=== PATIENT | male | born 1955 | race Caucasian/White ===

== ENCOUNTER 2017-08-07 23:32 | Emergency (ER) | payer BC, OTHER ==
[~2017-08-07] VITALS: Ht 182.9 cm; Wt 81.7 kg
--- NOTE | ~2017-08-07 | EKG ---
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
[~2017-08-07 23:32] MED LIST: AMOXICILLIN 50500 MG PO; ASA5UEC PO; SAW PALMETTO160 MG PO; VITAMIN D2000 UNIT PO
== END 2017-08-08 01:09 | disposition left against medical advice (07) ==
LOC: ER 23:32
DX: R07.9 Chest pain, unspecified (principal)

== ENCOUNTER → 2018-07-31 | Outpatient (CLI) | payer BC, OTHER ==
[2018-07-31 07:37] LABS: CREATININE 1.2 mg/dL (0.7-1.3)
== END ==
LOC: MRI 06:32
PROVIDERS: Family Medicine
DX: K76.89 Other specified diseases of liver (principal); N28.1 Cyst of kidney, acquired

== ENCOUNTER 2019-02-07 11:20 | Emergency (ER) | payer BC, OTHER ==
[2019-02-07 11:46] LABS: ABSOLUTE NEUTROPHILS 4.5 thou/uL (1.4-8.2); BASOPHILS 0.6 % (0.0-2.0); EOSINOPHILS 3.8 % (0.0-3.0); HEMATOCRIT 44.1 % (42.0-52.0); HEMOGLOBIN 14.8 gm/dL (14.0-18.0); LYMPHOCYTES 29.5 % (24.0-44.0); MCH 32.3 pg (26.0-34.0); MCHC 33.6 g/dL (28.0-37.0); MCV 96.3 fL (80.0-100.0); PLATELET COUNT 225 thou/uL (150-400); POLYS 59.1 % (36.0-66.0); RBC 4.58 mil/uL (4.50-6.00); RDW 12.9 % (10.5-14.5); WBC 7.5 thou/uL (4.0-11.0)
[2019-02-07 11:56] LABS: ANION GAP 6 mmol/L (7-16); BUN 15 mg/dL (7-18); CALCIUM 9.2 mg/dL (8.5-10.1); CHLORIDE 97 mmol/L (98-107); CO2 29 mmol/L (21-32); GLUCOSE 92 mg/dL (74-106); POTASSIUM 3.9 mmol/L (3.5-5.1); SODIUM 132 mmol/L (136-145)
[2019-02-07 12:05] LABS: URINE BILIRUBIN NEGATIVE (Negative); URINE BLOOD NEGATIVE (Negative); URINE CLARITY CLEAR; URINE COLOR YELLOW; URINE GLUCOSE-RANDOM* NEGATIVE (Negative); URINE KETONES NEGATIVE (Negative); URINE LEUKOCYTES-REFLEX NEGATIVE (Negative); URINE NITRITE-REFLEX NEGATIVE (Negative); URINE PROTEIN (DIPSTICK) NEGATIVE (Negative); URINE UROBILINOGEN 0.2 E.U./dl (0.2-1.0)
[2019-02-07 12:05] LABS: SGOT 20 U/L (15-37); SGPT 24 U/L (30-65); TOTAL BILIRUBIN 0.6 mg/dL (<0.1-1.0); TOTAL PROTEIN 7.1 g/dL (6.4-8.2); TROPONIN-I <0.06 ng/mL (<0.06)
[2019-02-07 13:10] VITALS: BP 129/74
--- NOTE | 2019-02-08 10:18 | EKG ---
[address] [address] ELECTROCARDIOGRAM REPORT Name: JERARDO MCGEE Room #: DEP Antolin#: [id number] Admission: 02/07/19 Attend Phys: Discharge: 02/07/19 Date of : 51 Report #: [id number] THIS REPORT FOR: //name// [facility] ED Test Date: 2019-02-07 Test Time: 11:41:29 Pat Name: JERARDO MCGEE Department: Room: Gender: Demand Manager: : 1955 Requested By: Zana Nichole Order Number: [id number] MD: Iker Arreola Measurements Intervals [place] Rate: 71 P: 81 MI: 142 QRS: 76 QRSD: 98 T: 47 QT: 385 QTc: 419 Interpretive Statements Sinus rhythm Compared to ECG 08/07/2017 23:36:30 No change Electronically Signed On 02-08-2019 10:18:42 SCALE RECLAMATION TENDER by Iker Arreola [email or web address] <ELECTRONICALLY SIGNED> By: Iker Arreola MD 02/08/19 1018 1141 1141 Iker Arreola MD /EPI
== END 2019-02-07 13:11 | disposition home or self-care (01) ==
LOC: ER 11:20
PROVIDERS: Emergency Medicine
DX: R55 Syncope and collapse (principal)

== ENCOUNTER 2019-03-25 16:27 | Inpatient (IN) | payer BC, OTHER ==
[~2019-03-25] VITALS: Ht 182.9 cm; Wt 76.7 kg
[2019-03-25 16:32] VITALS: BP 123/61
[2019-03-25 17:11] LABS: ABSOLUTE NEUTROPHILS 7.7 thou/uL (1.4-8.2); BASOPHILS 0.2 % (0.0-2.0); EOSINOPHILS 0.6 % (0.0-3.0); HEMATOCRIT 44.1 % (42.0-52.0); HEMOGLOBIN 14.8 gm/dL (14.0-18.0); LYMPHOCYTES 8.4 % (24.0-44.0); MCH 32.3 pg (26.0-34.0); MCHC 33.6 g/dL (28.0-37.0); MCV 95.9 fL (80.0-100.0); MONOCYTES 2.2 % (1.0-8.0); PLATELET COUNT 213 thou/uL (150-400); POLYS 88.6 % (36.0-66.0); RDW 13.2 % (10.5-14.5); WBC 8.7 thou/uL (4.0-11.0)
[2019-03-25 17:21] LABS: CALCIUM 9.7 mg/dL (8.5-10.1); CREATININE 1.1 mg/dL (0.7-1.3); POTASSIUM 3.5 mmol/L (3.5-5.1)
[2019-03-25 17:27] LABS: ALBUMIN 4.3 g/dL (3.4-5.0); TOTAL BILIRUBIN 1.2 mg/dL (<0.1-1.0); TOTAL PROTEIN 7.1 g/dL (6.4-8.2)
[2019-03-25 18:32] LABS: URINE BILIRUBIN NEGATIVE (Negative); URINE BLOOD NEGATIVE (Negative); URINE CLARITY CLEAR; URINE COLOR YELLOW; URINE GLUCOSE-RANDOM* NEGATIVE (Negative); URINE KETONES TRACE (Negative); URINE LEUKOCYTES-REFLEX NEGATIVE (Negative); URINE NITRITE-REFLEX NEGATIVE (Negative); URINE PROTEIN (DIPSTICK) TRACE (Negative); URINE UROBILINOGEN 0.2 E.U./dl (0.2-1.0)
[2019-03-25] MEDS ORDERED: OMEPRAZOLE 20 M20 M1 PO (20:38)
[2019-03-25] MEDS ORDERED: POTASSIUM GLUCO99 M2 PO (20:39)
[2019-03-25 20:42] VITALS: BP 112/64; BP 123/64
[2019-03-25 20:45] VITALS: BP 115/64
--- NOTE | 2019-03-25 22:34 | NUR ---
PT ADMITTED INTO ROOM 433 AT AROUND 2130 HRS. PT IS ALERT AND ORIENTED. HE IS UP AD MAG-OBSERVED TO BE STEADY . PT HAS FLUIDS RUNNING. HE HAS A TEMP OF 100.0. DENIES ANY DISCOMFORT AT REST. HE HAS A PAIN OF 4/10 WITH ACTIVITY AND THATS MAINLY ABOMINAL GENERALISED.NPO EXCEPT MEDS WITH SMALL SIPS OF WATER.WILL CONTINUE WITH POC TILL EOS.
[2019-03-26 03:04] VITALS: BP 101/67
[2019-03-26 06:31] LABS: HEMATOCRIT 37.4 % (42.0-52.0); MCH 31.8 pg (26.0-34.0); MCHC 33.5 g/dL (28.0-37.0); MCV 95.1 fL (80.0-100.0); RBC 3.94 mil/uL (4.50-6.00); RDW 13.2 % (10.5-14.5); WBC 16.2 thou/uL (4.0-11.0)
[2019-03-26 06:35] LABS: HEMOGLOBIN 12.5 gm/dL (14.0-18.0)
[2019-03-26 06:41] LABS: CALCIUM 8.4 mg/dL (8.5-10.1); CREATININE 1.2 mg/dL (0.7-1.3)
[2019-03-26 06:45] LABS: ALBUMIN 3.1 g/dL (3.4-5.0); MAGNESIUM 1.7 mg/dL (1.8-2.4); PHOSPHORUS 3.4 mg/dL (2.5-4.9)
[2019-03-26 07:46] VITALS: BP 137/68
--- NOTE | 2019-03-26 11:50 | NUR ---
PT CARE ASSUMED AT 0700. A&Ox4. PT IS VERY PLEASANT AND RESTING IN HIS ROOM WITH PRESENT. PT IS ON BOWEL REST. NPO. CAN TAKE MEDS WITH SMALL SIPS OF WATER. LUIDS INFUSING AT 125ML/ HER. PT HAD A FEVER OVER THE PRIOR RISK CONSULTING TREASURY DIRECTOR WITH NO TEMPS OVER 38.6 DURING THIS SHIFT. Q2 TEMPS COMPLEETED. MD LARSON HAS BEEN CONSULTED AND HAS SEEN PT. ANTIBIOTICS INFUSING. IV IS PATENT WITH NO REDNESS OR EDEMA PRESENT. CHAPTSTICK PROVIDED AND PT DECLINED MOUTHSWABS. PT IS CONCERNED ABOUT THIS HOSPITAL STAY NOT BEING COVERED UNDER HIS INSURANCE. HI LO DRIVER NOTIFIED AND WILL TALK WITH PT AND . BED IS IN LOW POSITION, LOCKED WITH CALL LIGHT IN REACH.
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
[2019-03-26 15:44] VITALS: BP 110/67
[2019-03-26 20:45] VITALS: BP 119/75
--- NOTE | 2019-03-27 02:26 | NUR ---
ASSUMED CARE OF PT AT 1900HRS. PT IS AOX4 AND LTS NEEDS BE KNOWN. PT IS UP AD MAG. PT DENIED NAUSEA OR PAIN THIS SHIFT. PT TOLERATED PO MEDS WITH SIPS OF WATER. PT WAS AFIBRILE THIS SHIFT. ABX TREATMENT CONTINUED. PT WAS ABLE TO GET COMFORTABLE AND SLEEP PART OF THE SHIFT. VSS AND NO S/S OF ACUTE DISTRESS. WILL CONTINUE TO MONITOR.
[2019-03-27 03:30] VITALS: BP 119/76
[2019-03-27 06:26] LABS: HEMATOCRIT 38.7 % (42.0-52.0); HEMOGLOBIN 12.6 gm/dL (14.0-18.0); MCH 31.8 pg (26.0-34.0); MCHC 32.7 g/dL (28.0-37.0); MCV 97.4 fL (80.0-100.0); RBC 3.97 mil/uL (4.50-6.00); RDW 13.7 % (10.5-14.5); WBC 11.2 thou/uL (4.0-11.0)
[2019-03-27 06:52] LABS: ALBUMIN 3.1 g/dL (3.4-5.0); CALCIUM 8.2 mg/dL (8.5-10.1); CREATININE 1.1 mg/dL (0.7-1.3); PHOSPHORUS 2.7 mg/dL (2.5-4.9); POTASSIUM 3.8 mmol/L (3.5-5.1)
[2019-03-27 07:46] VITALS: BP 128/65
--- NOTE | 2019-03-27 10:42 | NUR ---
DR ALFONSO HERE TO SEE PATIENT WANTS PATIENT TO CONTINUE IV FLUIDS AND IV ABT TO CONTINUE NPO AND GIVE BOWEL REST TIME AND THEN PATIENT CAN DO SURGERY AT LATER TIME OUTPT. PT IS PLEASANT AND COOPERATIVE WITH CARE.
--- NOTE | 2019-03-27 16:46 | NUR ---
PT TRANSFERRRED TO SENIOR SUITES ROOM 405. PT AMBULATED TO ROOM ALL BELONGINGS AND IV FLUIDS SENT WITH PATIENT. PT REMAINS NPO.NO PAIN OR RESP DISTRESS AT TRANSFER.
[2019-03-27 16:54] VITALS: BP 127/73
--- NOTE | 2019-03-27 18:56 | NUR ---
PT TRANSFERED TO AT 1700 IN STABLE CONDITION.PIV CONTINUE ORDERED.NO VERBAL C/O.FAMILY HERE TO VISIT,UPDATES GIVEN.WILL CONTINUE TO MONITOR.
[2019-03-27 19:04] VITALS: BP 125/79
--- NOTE | 2019-03-28 03:47 | NUR ---
PATIENT ALERT AND ORIENTED X4. UP ADLIB IN ROOM AND HALLWAY. IVF INFUSING W/O COMPLICATION. DENIES PAIN. PATIENT ADVANCED TO CLEAR LIQUID DIET BY SURGEON, HOWEVER, HE PREFERS TO SPEAK WITH DR. ALFONSO BEFORE BEING TAKEN OFF OF NPO STATUS. ALSO REFUSED LOVENOX BECAUSE HE FEELS THAT HE WALKS ENOUGH AROUND THE UNIT. DENIES N/V. RESTING QUIETLY. WILL MONITOR.
[2019-03-28 07:32] VITALS: BP 98/52
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
[2019-03-28 09:05] LABS: HEMATOCRIT 39.7 % (42.0-52.0); HEMOGLOBIN 13.1 gm/dL (14.0-18.0); MCHC 32.9 g/dL (28.0-37.0); MCV 97.2 fL (80.0-100.0); RBC 4.08 mil/uL (4.50-6.00); RDW 13.6 % (10.5-14.5); WBC 8.7 thou/uL (4.0-11.0)
[2019-03-28 09:14] LABS: CALCIUM 8.6 mg/dL (8.5-10.1); POTASSIUM 4.4 mmol/L (3.5-5.1)
--- NOTE | 2019-03-28 18:25 | NUR ---
ASSUMED CARE OF PATIENT AT 0715, PATIENT ALERT AND ORIENTED X 4. PATIENT UP AD MAG, WALKING IN HALLWAYS MOST OF THE DAY. DR ALFONSO HERE THIS AM, ORDER TO D/C IV FLUIDS, PATIENT WILL TRY CELAR LIQUID DIET, HE WANTED TO WAIT AND TALK TO DR ALFONSO IN REGARD TO HIM RESUMING HIS DIET. DR ALFONSO STATES IF UNABLE TO TOLERATE DIET NOTIFY HIM AND HE WILL RESTARD IV FLUIDS. PATIENT HAS TOLERATED CLEAR LIQUIDS, AND FULL LIQUIDS FOR LUNCH AND DINNER, NO C/O NAUSEA OR PAIN THIS SHIFT. PATIENT HAS RIGHT FOREARM IV IN PLACE, RECEIVED 2 IV ANTIBIOTICS THIS SHIFT. PATIENT IS VERY PLEASANT AND COOPERATIVE. PATIENT HAS HAD MANY VISITORS TODAY. WILL CONTINUE TO MONITOR.
[2019-03-28 20:35] VITALS: BP 119/80
--- NOTE | 2019-03-29 02:18 | NUR ---
ASSUMED CARE OF PATIENT AT APPROX. 1999. ASSESSMENT CHARTED. MEDICATIONS GIVEN PER EMAR. PATIENT IS A&OX4 AND PLEASANT, COOPERATIVE. VSS, DENIES PAIN. TEMPERATURE IS 99.0, PATIENT IS CONCERNED ABOUT HIGH TEMP. AT 2300 ORAL TEMP RECHECKED AND AT 98.5. ZOSYN FINISHED INFUSING. NEXT DOSE TO BE ADMINISTERED AT 0300. PATIENT GETS UP INDEPENDENTLY W NO ISSUES W GAIT. PATIENT IS ON FULL LIQUIDS AND ADVANCING W NO C/O GI UPSET. URINE OUTPUT ADEQUATE; PATIENT STATES HE HAS SMALL BM'S WHEN HE VOIDS. FAMILY VISITED W PATIENT FOR MOST OF THE DAY. PATIENT DENIES NO OTHER NEEDS. IV INFUSING NS FLUSH AND PATENT. PATIENT WILL CALL OUT APPROPRIATELY. WILL CONTINUE TO MONITOR AND FOLLOW PLAN OF CARE.
--- NOTE | 2019-03-29 05:40 | NUR ---
THIS NURSE AGREES WITH ASSESSMENT AND NOTES BY GROOVER AND STRIPER OPERATOR FOR THIS PATIENT.
[2019-03-29 07:36] VITALS: BP 129/75
[2019-03-29] MEDS ORDERED: AUGMENTIN 875-1 EACH PO (09:29)
[2019-03-29] MEDS ORDERED: MIRALAX119 GM PO (10:53)
[2019-03-29 15:32] VITALS: BP 129/75
--- NOTE | 2019-03-29 19:55 | NUR ---
ASSUMED CARE OF PT AT 0715. PT IS A&OX4. IS ON ROOM AIR. IS UP ADLIB. DENIES PAIN & N/V. IS STABLE. HOURLY ROUNDING MAINTAINED. LABS REVIEWED.
== END 2019-03-29 16:00 | disposition home or self-care (01) | DRG 392 ==
LOC: ER 16:27 → EROBS 19:24 → 4S 19:24 → 4N 03-27 16:50
PROVIDERS: Emergency Medicine; Surgery; ADMIT Family Medicine
DX: K57.20 Diverticulitis of large intestine with perforation and abscess without bleeding (principal); F41.0 Panic disorder [episodic paroxysmal anxiety]; K57.30 Diverticulosis of large intestine without perforation or abscess without bleeding; K76.89 Other specified diseases of liver; Z79.899 Other long term (current) drug therapy; Z79.82 Long term (current) use of aspirin; Z79.2 Long term (current) use of antibiotics; Z86.010 Personal history of colon polyps
CPT/HCPCS: 10091; 10195

== ENCOUNTER → 2019-04-15 | Outpatient (CLI) | payer OTHER ==
[~2019-04-15] MED LIST changes: +AUGMENTIN 875-1 EACH PO; +MIRALAX119 GM PO; +OMEPRAZOLE 20 M20 M1 PO; +POTASSIUM GLUCO99 M2 PO
== END ==
LOC: SJCVC 11:23
DX: I10 Essential (primary) hypertension (principal); E78.00 Pure hypercholesterolemia, unspecified; Z82.49 Family history of ischemic heart disease and other diseases of the circulatory system; Z79.82 Long term (current) use of aspirin; Z79.899 Other long term (current) drug therapy

== ENCOUNTER → 2019-05-06 | Outpatient (CLI) | payer OTHER | LOC: CAT 12:18 | DX: Z13.6 Encounter for screening for cardiovascular disorders (principal); I25.10 Atherosclerotic heart disease of native coronary artery without angina pectoris; E78.00 Pure hypercholesterolemia, unspecified ==

== ENCOUNTER → 2019-05-15 | Outpatient (CLI) | payer OTHER | LOC: SJCVCIMAG 10:24 | DX: I08.1 Rheumatic disorders of both mitral and tricuspid valves (principal); I10 Essential (primary) hypertension; E78.5 Hyperlipidemia, unspecified ==

== ENCOUNTER → 2020-02-09 | Outpatient (CLI) | payer OTHER | LOC: SJCVC 11:49 | PROVIDERS: ATTEND Internal Medicine Cardiovascular Disease | DX: I10 Essential (primary) hypertension (principal); E78.00 Pure hypercholesterolemia, unspecified; R00.1 Bradycardia, unspecified; Z87.898 Personal history of other specified conditions; Z79.899 Other long term (current) drug therapy; Z82.49 Family history of ischemic heart disease and other diseases of the circulatory system ==